=== PATIENT | female | born 1950 | race Caucasian/White ===

== ENCOUNTER 2017-01-11 11:47 | Day surgery (SDC) | payer OTHER ==
[~2017-01-11] VITALS: Ht 160 cm; Wt 108.8 kg
[~2017-01-11 11:47] MED LIST: APRESOLINE100 MG PO; CALCIUM ACETAT667 M2 PO; CALCIUM ACETAT667 MG PO; COZAAR50 MG PO; CYMBALTA60 MG PO; DUONEB 2.5-0.5 M3 ML AEROSOL; ERGOCALCIF50000 UNIT PO; FOLIC ACID1 MG PO; IMDUR120 MG PO; LEVEMIR100 UNIT/2 SC; LEVO-T75 MCG PO; LIPITOR40 MG PO; LO-DOSE ASPIRIN81 M2 PO; NABI650T PO; NEPHRO-VITE,1 TABLET PO; NORVASC2.5 MG PO; NOVOLIN N100 UNITS/ SC; TENORMIN50 MG PO; VITAMIN D-32000 UNI2 PO
[2017-01-11 12:24] LABS: POINT-OF-CARE METER ID UU14174212
[2017-01-11 12:29] LABS: HEMATOCRIT 32.3 % (36.0-46.0); MCH 30.3 PG (29.0-34.0); MCHC 31.3 G/DL (30.0-36.0); MEAN PLAT.VOLUME 10.3 uM^3 (9.5-12.4); PLATELET COUNT 236 K/uL (156-360); RBC DIS.WIDTH-SD 55.8 % (39-53); RED BLOOD COUNT 3.33 M/uL (3.80-5.20); WHITE BLOOD COUNT 8.7 K/uL (4.1-10.2)
[2017-01-11 12:34] VITALS: BP 135/69
[2017-01-11 12:46] LABS: CHLORIDE 96 mEq/L (99-109); POTASSIUM 3.4 mEq/L (3.7-5.4); SODIUM 140 mEq/L (136-147)
[2017-01-11 12:48] LABS: GLUCOSE 88 mg/dL (70-99)
[2017-01-11 12:50] LABS: ANION GAP 13 MEQ/L (2-14)
[2017-01-11 12:52] LABS: GFR ESTIMATE (CALCULATED) 12 mL/min/
[2017-01-11 12:53] LABS: UREA NITROGEN (BUN) 40 mg/dL (9-23)
[2017-01-11 17:43] LABS: POINT-OF-CARE METER ID UU13113675
[2017-01-11] MEDS ORDERED: NORCO 5/3251 TABLET PO (17:53)
[2017-01-11 18:45] VITALS: BP 127/58
[2017-01-11 20:42] VITALS: BP 107/53
== END 2017-01-11 21:08 | disposition home or self-care (01) ==
LOC: SDC 11:47
PROVIDERS: Surgery
PROC: 031 Upper Arteries, Bypass (ICD-10-PCS; principal; 2017-01-11)
DX: I12.0 Hypertensive chronic kidney disease with stage 5 chronic kidney disease or end stage renal disease (principal); E11.22 Type 2 diabetes mellitus with diabetic chronic kidney disease; N18.6 End stage renal disease; Z99.2 Dependence on renal dialysis; Z79.4 Long term (current) use of insulin; E78.5 Hyperlipidemia, unspecified; E03.9 Hypothyroidism, unspecified; F41.1 Generalized anxiety disorder; F32.9 Major depressive disorder, single episode, unspecified; G47.30 Sleep apnea, unspecified; Z79.82 Long term (current) use of aspirin; Z91.09 Other allergy status, other than to drugs and biological substances; Z82.49 Family history of ischemic heart disease and other diseases of the circulatory system; Z83.3 Family history of diabetes mellitus; Z83.2 Family history of diseases of the blood and blood-forming organs and certain disorders involving the immune mechanism
CPT/HCPCS: 80048; 82948; 85027; 93005; C1768; J0131; J0690; J1644; J2405

== ENCOUNTER 2017-02-13 14:27 | Day surgery (SDC) | payer OTHER ==
[~2017-02-13] VITALS: Ht 160 cm; Wt 106.9 kg
[~2017-02-13 14:27] MED LIST changes: +NORCO 5/3251 TABLET PO
[2017-02-13] MEDS ORDERED: ALPRAZOLAM0.25 M2 PO (15:02)
[2017-02-13] MEDS ORDERED: CYMBALTA60 MG PO (15:08)
[2017-02-13] MEDS ORDERED: LASIX40 MG PO (15:09)
[2017-02-13 15:11] LABS: ANION GAP 12 MEQ/L (2-14); CHLORIDE 95 MEQ/L (99-109); POTASSIUM 3.8 MEQ/L (3.7-5.4); SAMPLE HEMOLYSIS CHECK 0; SAMPLE ICTERIC CHECK 0; SAMPLE LIPEMIA CHECK 0; SODIUM 137 MEQ/L (136-147)
[2017-02-13 15:17] LABS: GFR ESTIMATE (CALCULATED) 10 mL/min/; GLUCOSE 113 mg/dL (70-99); UREA NITROGEN (BUN) 43 mg/dL (9-23)
[2017-02-13 15:42] LABS: EOSINOPHIL (%) 2.1 % (0-5); EOSINOPHIL COUNT 0.1 K/uL (0-0.3); HEMATOCRIT 33.2 % (36.0-46.0); IMMATURE GRANULOCYTE (%) 0.3 % (0.0-0.7); INSTRUMENT ABS NEUTROPHIL CT 4.3 K/uL; LYMPHOCYTE COUNT 0.9 K/uL (1.0-2.8); MCH 31.5 PG (29.0-34.0); MCHC 30.4 G/DL (30.0-36.0); MCV 103.4 FL (83-99); MEAN PLAT.VOLUME 10.2 uM^3 (9.5-12.4); MONOCYTE (%) 7.9 % (3-12); MONOCYTE COUNT 0.5 K/uL (0-0.8); NEUTROPHIL (%) 73.6 % (45-76); NEUTROPHIL COUNT 4.3 K/uL (1.8-6.4); PLATELET COUNT 291 K/uL (156-360); RBC DIS.WIDTH-CV 16.6 % (11.8-14.6); RBC DIS.WIDTH-SD 63.3 % (39-53); RED BLOOD COUNT 3.21 M/uL (3.80-5.20); WHITE BLOOD COUNT 5.8 K/uL (4.1-10.2)
[2017-02-13 17:01] LABS: METH RESISTANT S AUREUS PCR NEGATIVE (NEGATIVE)
[2017-02-13 17:11] LABS: PROBE CHECK PASS; SPECIMEN PROCESSING CONTROL PASS
[2017-02-13 19:25] LABS: POINT-OF-CARE METER ID UU13113675; POINT-OF-CARE USER ID ADMKMM76
[2017-02-13 19:54] VITALS: BP 138/67
== END 2017-02-13 20:26 | disposition home or self-care (01) ==
LOC: SDC 14:27
PROVIDERS: Surgery
DX: T82.868A Thrombosis due to vascular prosthetic devices, implants and grafts, initial encounter (principal); T82.858A Stenosis of other vascular prosthetic devices, implants and grafts, initial encounter; I12.0 Hypertensive chronic kidney disease with stage 5 chronic kidney disease or end stage renal disease; E11.22 Type 2 diabetes mellitus with diabetic chronic kidney disease; N18.6 End stage renal disease; Z99.2 Dependence on renal dialysis; E03.9 Hypothyroidism, unspecified; F41.1 Generalized anxiety disorder; G47.30 Sleep apnea, unspecified; Z79.82 Long term (current) use of aspirin; Z79.4 Long term (current) use of insulin; Z82.49 Family history of ischemic heart disease and other diseases of the circulatory system; Z83.3 Family history of diabetes mellitus; Z91.09 Other allergy status, other than to drugs and biological substances; Y83.2 Surgical operation with anastomosis, bypass or graft as the cause of abnormal reaction of the patient, or of later complication, without mention of misadventure at the time of the procedure
CPT/HCPCS: 80048; 82948; 85025; 87641; C1725; C1757; C1769; C1894; C2628; J0690; J1644; J2250; J2405; J3010

== ENCOUNTER 2017-02-15 14:43 | Day surgery (SDC) | payer OTHER ==
[~2017-02-15] VITALS: Ht 160 cm; Wt 106.9 kg
[~2017-02-15 14:43] MED LIST changes: +ALPRAZOLAM0.25 M2 PO; +LASIX40 MG PO
[2017-02-15 15:15] LABS: HEMATOCRIT 32.9 % (36.0-46.0); MCH 32.6 PG (29.0-34.0); MCHC 31.3 G/DL (30.0-36.0); MCV 104.1 FL (83-99); MEAN PLAT.VOLUME 9.5 uM^3 (9.5-12.4); PLATELET COUNT 264 K/uL (156-360); RBC DIS.WIDTH-CV 16.3 % (11.8-14.6); RBC DIS.WIDTH-SD 62.7 % (39-53); RED BLOOD COUNT 3.16 M/uL (3.80-5.20); WHITE BLOOD COUNT 5.2 K/uL (4.1-10.2)
[2017-02-15 15:25] VITALS: BP 176/90
[2017-02-15 15:35] LABS: ANION GAP 10 MEQ/L (2-14); CHLORIDE 96 MEQ/L (99-109); GFR ESTIMATE (CALCULATED) 12 mL/min/; GLUCOSE 88 mg/dL (70-99); POTASSIUM 3.5 MEQ/L (3.7-5.4); SAMPLE HEMOLYSIS CHECK 0; SAMPLE ICTERIC CHECK 0; SAMPLE LIPEMIA CHECK 0; SODIUM 138 MEQ/L (136-147); UREA NITROGEN (BUN) 29 mg/dL (9-23)
[2017-02-15 16:38] LABS: METH RESISTANT S AUREUS PCR NEGATIVE (NEGATIVE)
[2017-02-15 16:44] LABS: PROBE CHECK PASS; SPECIMEN PROCESSING CONTROL PASS
[2017-02-15 19:35] VITALS: BP 137/65
[2017-02-15 19:47] LABS: POINT-OF-CARE METER ID UU14174212
[2017-02-15 20:05] VITALS: BP 123/60
== END 2017-02-15 20:20 | disposition home or self-care (01) ==
LOC: SDC 14:43
PROVIDERS: Surgery
DX: T82.868A Thrombosis due to vascular prosthetic devices, implants and grafts, initial encounter (principal); I12.0 Hypertensive chronic kidney disease with stage 5 chronic kidney disease or end stage renal disease; N18.6 End stage renal disease; E11.22 Type 2 diabetes mellitus with diabetic chronic kidney disease; E78.4 Other hyperlipidemia; F41.1 Generalized anxiety disorder; E03.9 Hypothyroidism, unspecified; G47.30 Sleep apnea, unspecified; R94.31 Abnormal electrocardiogram [ECG] [EKG]; Z79.4 Long term (current) use of insulin; Z79.899 Other long term (current) drug therapy; Z83.3 Family history of diabetes mellitus; Z83.2 Family history of diseases of the blood and blood-forming organs and certain disorders involving the immune mechanism; Z82.49 Family history of ischemic heart disease and other diseases of the circulatory system
CPT/HCPCS: 80048; 82948; 85027; 87641; C1725; C1757; C1769; C1874; C1894; C2628; J0690; J1644; J2250; J3010

== ENCOUNTER 2017-02-18 14:33 | Day surgery (SDC) | payer OTHER ==
[~2017-02-18] VITALS: Ht 160 cm; Wt 112.4 kg
[2017-02-18 15:15] LABS: HEMATOCRIT 30.7 % (36.0-46.0); MCV 103.4 FL (83-99)
[2017-02-18 15:30] LABS: ANION GAP 10 MEQ/L (2-14); CHLORIDE 97 MEQ/L (99-109); POTASSIUM 3.2 MEQ/L (3.7-5.4); SAMPLE HEMOLYSIS CHECK 0; SAMPLE ICTERIC CHECK 0; SAMPLE LIPEMIA CHECK 0; SODIUM 137 MEQ/L (136-147)
[2017-02-18 15:33] VITALS: BP 134/84
[2017-02-18 15:36] LABS: GFR ESTIMATE (CALCULATED) 10 mL/min/; GLUCOSE 82 mg/dL (70-99); UREA NITROGEN (BUN) 31 mg/dL (9-23)
[2017-02-18 15:37] LABS: POINT-OF-CARE METER ID UU14174212
[2017-02-18 16:40] LABS: POINT-OF-CARE METER ID UU14174212
[2017-02-18 17:42] LABS: POINT-OF-CARE METER ID UU14174212
[2017-02-18 20:18] LABS: POINT-OF-CARE METER ID UU13113675
[2017-02-18 21:26] VITALS: BP 120/72
[2017-02-18 23:32] VITALS: BP 132/61
[2017-02-19 03:38] VITALS: BP 108/55; BP 97/51
[2017-02-19] MEDS ORDERED: NOVOLOG PE100 UNITS/ SC (05:01)
[2017-02-19 05:24] VITALS: BP 102/64
[2017-02-19 06:05] VITALS: BP 86/48
[2017-02-19 07:15] LABS: HEMATOCRIT 26.1 % (36.0-46.0); MCH 31.7 PG (29.0-34.0); MCHC 30.7 G/DL (30.0-36.0); MCV 103.6 FL (83-99); MEAN PLAT.VOLUME 10.1 uM^3 (9.5-12.4); PLATELET COUNT 231 K/uL (156-360); RBC DIS.WIDTH-CV 16.7 % (11.8-14.6); RBC DIS.WIDTH-SD 62.4 % (39-53); WHITE BLOOD COUNT 6.2 K/uL (4.1-10.2)
[2017-02-19 07:30] LABS: RED BLOOD COUNT 2.52 M/uL (3.80-5.20)
[2017-02-19 07:46] LABS: ANION GAP 11 MEQ/L (2-14); CHLORIDE 98 MEQ/L (99-109); GFR ESTIMATE (CALCULATED) 8 mL/min/; POTASSIUM 3.5 MEQ/L (3.7-5.4); SAMPLE HEMOLYSIS CHECK 0; SAMPLE ICTERIC CHECK 0; SAMPLE LIPEMIA CHECK 0; SODIUM 138 MEQ/L (136-147); UREA NITROGEN (BUN) 34 mg/dL (9-23)
[2017-02-19 07:49] LABS: GLUCOSE 142 mg/dL (70-99)
[2017-02-19 08:00] VITALS: BP 124/56
[2017-02-19] MEDS ORDERED: METOPROLOL SUCC25 MG PO (15:08)
[2017-02-19] MEDS ORDERED: IMDUR60 MG PO (15:08)
[2017-02-19] MEDS ORDERED: ELIQUIS5 MG PO (15:08)
== END 2017-02-19 17:24 | disposition home or self-care (01) ==
LOC: SDC 14:33 → 2EASTP 20:15 → 2SOUTH 20:15 → 2EASTP 21:26
PROVIDERS: Surgery
DX: T82.868A Thrombosis due to vascular prosthetic devices, implants and grafts, initial encounter (principal); T82.858A Stenosis of other vascular prosthetic devices, implants and grafts, initial encounter; Y83.2 Surgical operation with anastomosis, bypass or graft as the cause of abnormal reaction of the patient, or of later complication, without mention of misadventure at the time of the procedure; I13.2 Hypertensive heart and chronic kidney disease with heart failure and with stage 5 chronic kidney disease, or end stage renal disease; E11.22 Type 2 diabetes mellitus with diabetic chronic kidney disease; N18.6 End stage renal disease; I50.9 Heart failure, unspecified; Z99.2 Dependence on renal dialysis; Z79.4 Long term (current) use of insulin; E78.5 Hyperlipidemia, unspecified; E03.9 Hypothyroidism, unspecified; E66.01 Morbid (severe) obesity due to excess calories; Z68.41 Body mass index [BMI] 40.0-44.9, adult; D63.1 Anemia in chronic kidney disease; N25.81 Secondary hyperparathyroidism of renal origin; R60.0 Localized edema; I87.8 Other specified disorders of veins; Z79.82 Long term (current) use of aspirin; Z83.3 Family history of diabetes mellitus; Z84.1 Family history of disorders of kidney and ureter
CPT/HCPCS: 80048; 80048 91; 82948; 85014; 85018; 85027; 85730; 94660; C1725; C1757; C1769; C1894; C2628; G0378; J0690; J0881; J1270; J1644; J1815; J2175; J7040

== ENCOUNTER → 2017-03-20 | Outpatient (CLI) | payer OTHER ==
[~2017-03-20] MED LIST changes: +ELIQUIS5 MG PO; +IMDUR60 MG PO; +METOPROLOL SUCC25 MG PO; +NOVOLOG PE100 UNITS/ SC
== END | disposition home or self-care (01) ==
LOC: AMB 07:30
PROC: 0JPTXXZ Removal of Tunneled Vascular Access Device from Trunk Subcutaneous Tissue and Fascia, External Approach (ICD-10-PCS; principal; 2017-03-20)
DX: N18.6 End stage renal disease (principal); Z99.2 Dependence on renal dialysis

== ENCOUNTER 2017-07-26 05:43 | Day surgery (SDC) | payer OTHER ==
[~2017-07-26] VITALS: Ht 160 cm; Wt 705.7 kg
[~2017-07-26 05:43] MED LIST changes: +ISOSORBIDE MONO30 MG PO; -LASIX40 MG PO; +LASIX80 MG PO; +RENAL-VITE TAB0.8 MG PO; +TOPROL XL25 MG PO
[2017-07-26 06:23] LABS: POINT-OF-CARE METER ID UU14174212
[2017-07-26 06:28] LABS: HEMATOCRIT 33.4 % (36.0-46.0); MCH 32.5 PG (29.0-34.0); MCHC 31.4 G/DL (30.0-36.0); MCV 103.4 FL (83-99); MEAN PLAT.VOLUME 9.7 uM^3 (9.5-12.4); PLATELET COUNT 236 K/uL (156-360); RBC DIS.WIDTH-CV 13.9 % (11.8-14.6); RBC DIS.WIDTH-SD 53.2 % (39-53); RED BLOOD COUNT 3.23 M/uL (3.80-5.20); WHITE BLOOD COUNT 5.7 K/uL (4.1-10.2)
[2017-07-26 06:36] VITALS: BP 163/79
[2017-07-26 07:11] LABS: ANION GAP 12 MEQ/L (2-14); CHLORIDE 93 MEQ/L (99-109); GFR ESTIMATE (CALCULATED) 14 mL/min/; GLUCOSE 180 mg/dL (70-99); POTASSIUM 3.6 MEQ/L (3.7-5.4); SAMPLE HEMOLYSIS CHECK 0; SAMPLE ICTERIC CHECK 0; SAMPLE LIPEMIA CHECK 0; SODIUM 137 MEQ/L (136-147); UREA NITROGEN (BUN) 36 mg/dL (9-23)
[2017-07-26 07:26] LABS: METH RESISTANT S AUREUS PCR NEGATIVE (NEGATIVE); PROBE CHECK PASS; SPECIMEN PROCESSING CONTROL PASS
[2017-07-26 09:46] LABS: POINT-OF-CARE METER ID UU13113675; POINT-OF-CARE USER ID 515036437
[2017-07-26] MEDS ORDERED: NORCO 5/3251 TABLET PO (10:10)
[2017-07-26 11:07] VITALS: BP 122/58
[2017-07-26 12:07] VITALS: BP 111/56
[2017-07-26 13:10] VITALS: BP 103/51
== END 2017-07-26 13:10 | disposition home or self-care (01) ==
LOC: SDC 05:43
PROVIDERS: Surgery
PROC: 0WHG43Z Insertion of Infusion Device into Peritoneal Cavity, Percutaneous Endoscopic Approach (ICD-10-PCS; principal; 2017-07-26)
DX: I12.0 Hypertensive chronic kidney disease with stage 5 chronic kidney disease or end stage renal disease (principal); E11.22 Type 2 diabetes mellitus with diabetic chronic kidney disease; N18.6 End stage renal disease; Z99.2 Dependence on renal dialysis; Z79.4 Long term (current) use of insulin; E78.4 Other hyperlipidemia; E03.9 Hypothyroidism, unspecified; G47.30 Sleep apnea, unspecified; F41.1 Generalized anxiety disorder; Z79.82 Long term (current) use of aspirin; Z79.01 Long term (current) use of anticoagulants
CPT/HCPCS: 80048; 82948; 85027; 87641; C1750; J0690; J2250; J2405; J2710; J2765; J3010; S0020

== ENCOUNTER 2017-08-16 15:23 | Day surgery (SDC) | payer OTHER ==
[~2017-08-16] VITALS: Ht 160 cm; Wt 105.7 kg
[2017-08-16 15:46] VITALS: BP 160/79
[2017-08-16 16:02] LABS: EOSINOPHIL (%) 4.5 % (0-5); EOSINOPHIL COUNT 0.2 K/uL (0-0.3); HEMATOCRIT 34.3 % (36.0-46.0); IMMATURE GRANULOCYTE (%) 0.2 % (0.0-0.7); INSTRUMENT ABS NEUTROPHIL CT 3.7 K/uL; MCH 32.1 PG (29.0-34.0); MCHC 31.2 G/DL (30.0-36.0); MEAN PLAT.VOLUME 9.7 uM^3 (9.5-12.4); MONOCYTE (%) 7.5 % (3-12); MONOCYTE COUNT 0.4 K/uL (0-0.8); NEUTROPHIL (%) 68.5 % (45-76); NEUTROPHIL COUNT 3.7 K/uL (1.8-6.4); PLATELET COUNT 286 K/uL (156-360); RBC DIS.WIDTH-CV 13.8 % (11.8-14.6); RBC DIS.WIDTH-SD 52.3 % (39-53); RED BLOOD COUNT 3.33 M/uL (3.80-5.20); WHITE BLOOD COUNT 5.3 K/uL (4.1-10.2)
[2017-08-16 16:11] LABS: ANION GAP 13 MEQ/L (2-14); CHLORIDE 94 MEQ/L (99-109); POTASSIUM 3.6 MEQ/L (3.7-5.4); SAMPLE HEMOLYSIS CHECK 0; SAMPLE ICTERIC CHECK 0; SAMPLE LIPEMIA CHECK 0; SODIUM 137 MEQ/L (136-147)
[2017-08-16 16:17] LABS: GFR ESTIMATE (CALCULATED) 11 mL/min/; GLUCOSE 181 mg/dL (70-99); UREA NITROGEN (BUN) 40 mg/dL (9-23)
[2017-08-16 18:57] LABS: POINT-OF-CARE METER ID UU13113675
[2017-08-16 19:40] VITALS: BP 185/81
[2017-08-16 20:05] VITALS: BP 167/77
== END 2017-08-16 20:19 | disposition home or self-care (01) ==
LOC: SDC 15:23
PROVIDERS: Surgery
PROC: 0WWG40Z Revision of Drainage Device in Peritoneal Cavity, Percutaneous Endoscopic Approach (ICD-10-PCS; principal; 2017-08-16)
DX: T85.611A Breakdown (mechanical) of intraperitoneal dialysis catheter, initial encounter (principal); Y81.2 Prosthetic and other implants, materials and accessory general- and plastic-surgery devices associated with adverse incidents; I12.0 Hypertensive chronic kidney disease with stage 5 chronic kidney disease or end stage renal disease; E11.22 Type 2 diabetes mellitus with diabetic chronic kidney disease; N18.6 End stage renal disease; Z99.2 Dependence on renal dialysis; E78.4 Other hyperlipidemia; E03.9 Hypothyroidism, unspecified; F41.1 Generalized anxiety disorder; F32.9 Major depressive disorder, single episode, unspecified; G47.30 Sleep apnea, unspecified; Z79.82 Long term (current) use of aspirin; Z79.01 Long term (current) use of anticoagulants; Z79.4 Long term (current) use of insulin; Z82.49 Family history of ischemic heart disease and other diseases of the circulatory system; Z83.3 Family history of diabetes mellitus
CPT/HCPCS: 80048; 82948; 85025; 93005; J0690; J3010; S0020

== ENCOUNTER 2017-09-05 10:33 | Inpatient (IN) | payer OTHER ==
[~2017-09-05] VITALS: Ht 160 cm; Wt 113.0 kg
[2017-09-05 11:06] LABS: HEMATOCRIT 31.7 % (36.0-46.0); MCV 103.6 FL (83-99)
[2017-09-05 11:24] VITALS: BP 131/64
[2017-09-05 11:26] LABS: POINT-OF-CARE METER ID UU14174212
[2017-09-05 11:33] LABS: ANION GAP 11 MEQ/L (2-14); CHLORIDE 95 MEQ/L (99-109); POTASSIUM 3.9 MEQ/L (3.7-5.4); SAMPLE HEMOLYSIS CHECK 0; SAMPLE ICTERIC CHECK 0; SAMPLE LIPEMIA CHECK 0; SODIUM 137 MEQ/L (136-147)
[2017-09-05 11:38] LABS: GFR ESTIMATE (CALCULATED) 9 mL/min/; GLUCOSE 193 mg/dL (70-99); UREA NITROGEN (BUN) 54 mg/dL (9-23)
[2017-09-05 17:27] LABS: POINT-OF-CARE METER ID UU13113675
[2017-09-05 20:00] VITALS: BP 127/58
[2017-09-05 21:01] LABS: POINT-OF-CARE METER ID UU14174216
[2017-09-05 23:55] VITALS: BP 125/59
[2017-09-06 04:00] VITALS: BP 113/55
[2017-09-06 07:58] LABS: POINT-OF-CARE METER ID UU13113698
[2017-09-06 08:19] VITALS: BP 112/54
[2017-09-06 11:24] LABS: POINT-OF-CARE METER ID UU13113698
[2017-09-06 12:00] VITALS: BP 133/61
[2017-09-06 16:15] VITALS: BP 115/55
[2017-09-06 16:42] LABS: POINT-OF-CARE METER ID UU13113698
[2017-09-06 19:15] VITALS: BP 132/84
[2017-09-06 20:46] LABS: POINT-OF-CARE METER ID UU13113698
[2017-09-07] VITALS (7 sets, daily range): BP systolic 125–145; BP diastolic 63–70
[2017-09-07 06:39] LABS: ANION GAP 10 MEQ/L (2-14); CHLORIDE 96 MEQ/L (99-109); GFR ESTIMATE (CALCULATED) 7 mL/min/; GLUCOSE 162 mg/dL (70-99); POTASSIUM 3.9 MEQ/L (3.7-5.4); SAMPLE HEMOLYSIS CHECK 0; SAMPLE ICTERIC CHECK 0; SAMPLE LIPEMIA CHECK 0; SODIUM 134 MEQ/L (136-147); UREA NITROGEN (BUN) 56 mg/dL (9-23)
[2017-09-07 07:53] LABS: POINT-OF-CARE METER ID UU13113698
[2017-09-07 11:04] LABS: POINT-OF-CARE METER ID UU13113698
[2017-09-07 17:01] LABS: POINT-OF-CARE METER ID UU13113698
[2017-09-07 22:12] LABS: POINT-OF-CARE METER ID UU13113698
[2017-09-08 04:40] VITALS: BP 110/58
[2017-09-08 08:10] LABS: ANION GAP 11 MEQ/L (2-14); CHLORIDE 97 MEQ/L (99-109); GFR ESTIMATE (CALCULATED) 8 mL/min/; GLUCOSE 134 mg/dL (70-99); POTASSIUM 3.8 MEQ/L (3.7-5.4); SAMPLE HEMOLYSIS CHECK 0; SAMPLE ICTERIC CHECK 0; SAMPLE LIPEMIA CHECK 0; SODIUM 135 MEQ/L (136-147); UREA NITROGEN (BUN) 55 mg/dL (9-23)
[2017-09-08 08:14] LABS: POINT-OF-CARE METER ID UU14314088; POINT-OF-CARE USER ID ENVKC36
[2017-09-08 09:00] VITALS: BP 125/62
[2017-09-08 11:52] LABS: POINT-OF-CARE METER ID UU14314088; POINT-OF-CARE USER ID ENVKC36
[2017-09-08 12:00] VITALS: BP 118/58
== END 2017-09-08 15:45 | disposition home or self-care (01) | DRG 919 ==
LOC: SDC 10:33 → ENRESERV 17:06 → 4EAST 17:07 → 2SOUTH 17:07 → CANRESERV 17:49 → ENRESERV 17:49 → 4EAST 20:36
PROVIDERS: Internal Medicine Nephrology; Surgery
PROC: 0JWT33Z Revision of Infusion Device in Trunk Subcutaneous Tissue and Fascia, Percutaneous Approach (ICD-10-PCS; principal; 2017-09-05)
PROC: 3E1M39Z Irrigation of Peritoneal Cavity using Dialysate, Percutaneous Approach (ICD-10-PCS; 2017-09-06)
DX: T85.611A Breakdown (mechanical) of intraperitoneal dialysis catheter, initial encounter (principal); N18.6 End stage renal disease; I13.2 Hypertensive heart and chronic kidney disease with heart failure and with stage 5 chronic kidney disease, or end stage renal disease; N25.81 Secondary hyperparathyroidism of renal origin; Z68.41 Body mass index [BMI] 40.0-44.9, adult; F33.9 Major depressive disorder, recurrent, unspecified; Y81.2 Prosthetic and other implants, materials and accessory general- and plastic-surgery devices associated with adverse incidents; D63.1 Anemia in chronic kidney disease; E03.9 Hypothyroidism, unspecified; E11.22 Type 2 diabetes mellitus with diabetic chronic kidney disease; F41.1 Generalized anxiety disorder; G47.30 Sleep apnea, unspecified; E78.00 Pure hypercholesterolemia, unspecified; I50.9 Heart failure, unspecified; E66.9 Obesity, unspecified; Z90.49 Acquired absence of other specified parts of digestive tract; Z79.01 Long term (current) use of anticoagulants; Z99.89 Dependence on other enabling machines and devices; Z99.2 Dependence on renal dialysis; Z79.4 Long term (current) use of insulin; Z82.49 Family history of ischemic heart disease and other diseases of the circulatory system; Z83.3 Family history of diabetes mellitus
CPT/HCPCS: 80048; 80069; 82948; 85014; 85018; 94799; C1750; G0378; J0330; J0690; J1644; J1815; J2710; J3010; J7040; S0020

== ENCOUNTER 2017-12-27 05:42 | Day surgery (SDC) | payer OTHER ==
[~2017-12-27] VITALS: Ht 160 cm; Wt 114.2 kg
[2017-12-27 06:08] VITALS: BP 163/72
[2017-12-27 06:34] LABS: HEMATOCRIT 35.2 % (36.0-46.0); HEMOGLOBIN 10.9 G/DL (11.9-15.5); MCH 31.3 PG (29.0-34.0); MCV 101.1 FL (83-99); PLATELET COUNT 260 K/uL (156-360); RBC DIS.WIDTH-CV 14.9 % (11.8-14.6); RBC DIS.WIDTH-SD 55.8 % (39-53); RED BLOOD COUNT 3.48 M/uL (3.80-5.20); WHITE BLOOD COUNT 5.9 K/uL (4.1-10.2)
[2017-12-27 06:46] LABS: CHLORIDE 102 MEQ/L (99-109); CREATININE 5.5 MG/DL (0.6-1.3); GFR ESTIMATE (CALCULATED) 8 mL/min/; GLUCOSE 175 mg/dL (70-99); POTASSIUM 3.9 MEQ/L (3.7-5.4); SODIUM 139 MEQ/L (136-147); UREA NITROGEN (BUN) 71 mg/dL (9-23)
[2017-12-27] MEDS ORDERED: NORCO 5/3251 TABLET PO (10:07)
[2017-12-27 14:20] VITALS: BP 128/58
[2017-12-27 23:17] VITALS: BP 120/60
[2017-12-28 07:00] VITALS: BP 134/69
== END 2017-12-28 18:37 | disposition home or self-care (01) ==
LOC: SDC 05:42 → 2SOUTH 10:06 → ENRESERV 10:07 → SDC 12:09 → ENRESERV 13:28 → SDC 13:45 → 5EAST 14:25
PROVIDERS: Surgery
PROC: 0WWG40Z Revision of Drainage Device in Peritoneal Cavity, Percutaneous Endoscopic Approach (ICD-10-PCS; principal; 2017-12-27)
DX: T85.611A Breakdown (mechanical) of intraperitoneal dialysis catheter, initial encounter (principal); I12.0 Hypertensive chronic kidney disease with stage 5 chronic kidney disease or end stage renal disease; N18.6 End stage renal disease; Z99.2 Dependence on renal dialysis; E11.22 Type 2 diabetes mellitus with diabetic chronic kidney disease; E78.4 Other hyperlipidemia; E07.9 Disorder of thyroid, unspecified; F41.1 Generalized anxiety disorder; F32.9 Major depressive disorder, single episode, unspecified; G47.30 Sleep apnea, unspecified; Z79.4 Long term (current) use of insulin; Z79.01 Long term (current) use of anticoagulants; Z79.82 Long term (current) use of aspirin; Z82.49 Family history of ischemic heart disease and other diseases of the circulatory system; Z83.3 Family history of diabetes mellitus; Z83.2 Family history of diseases of the blood and blood-forming organs and certain disorders involving the immune mechanism; Z91.048 Other nonmedicinal substance allergy status; Y83.1 Surgical operation with implant of artificial internal device as the cause of abnormal reaction of the patient, or of later complication, without mention of misadventure at the time of the procedure
CPT/HCPCS: 80048; 82948; 85027; 94799; G0378; J0690; J1170; J1815; J2250; J2405; J2710; J2765; S0020

== ENCOUNTER 2018-05-02 10:31 | Day surgery (SDC) | payer OTHER, BC ==
[~2018-05-02] VITALS: Ht 160 cm; Wt 103.4 kg
[~2018-05-02 10:31] MED LIST changes: +CYMBALTA20 MG PO; +TYLENOL325 M2 PO
[2018-05-02 11:06] LABS: HEMOGLOBIN 11.3 G/DL (11.9-15.5); MCH 32.8 PG (29.0-34.0); MCHC 33.2 G/DL (30.0-36.0); MCV 98.6 FL (83-99); PLATELET COUNT 256 K/uL (156-360); RBC DIS.WIDTH-CV 13.9 % (11.8-14.6); RBC DIS.WIDTH-SD 49.7 % (39-53); RED BLOOD COUNT 3.45 M/uL (3.80-5.20); WHITE BLOOD COUNT 6.2 K/uL (4.1-10.2)
[2018-05-02 11:30] VITALS: BP 187/81
[2018-05-02 11:41] LABS: CHLORIDE 88 MEQ/L (99-109); CREATININE 3.2 MG/DL (0.6-1.3); GFR ESTIMATE (CALCULATED) 15 mL/min/; SODIUM 132 MEQ/L (136-147); UREA NITROGEN (BUN) 25 mg/dL (9-23)
[2018-05-02 11:43] LABS: GLUCOSE 528 mg/dL (70-99)
[2018-05-02 18:16] VITALS: BP 180/89
[2018-05-02 20:04] VITALS: BP 136/72
[2018-05-02 23:58] VITALS: BP 141/66
[2018-05-03 08:04] VITALS: BP 139/73
== END 2018-05-03 12:55 | disposition home or self-care (01) ==
LOC: SDC 10:31 → 2SOUTH 17:12 → ENRESERV 17:14 → 2EAST 18:12
PROVIDERS: Surgery
PROC: 0WPG03Z Removal of Infusion Device from Peritoneal Cavity, Open Approach (ICD-10-PCS; principal; 2018-05-02)
DX: T85.611A Breakdown (mechanical) of intraperitoneal dialysis catheter, initial encounter (principal); Y81.2 Prosthetic and other implants, materials and accessory general- and plastic-surgery devices associated with adverse incidents; I12.0 Hypertensive chronic kidney disease with stage 5 chronic kidney disease or end stage renal disease; E11.22 Type 2 diabetes mellitus with diabetic chronic kidney disease; E11.65 Type 2 diabetes mellitus with hyperglycemia; N18.6 End stage renal disease; Z99.2 Dependence on renal dialysis; E78.5 Hyperlipidemia, unspecified; E03.9 Hypothyroidism, unspecified; F41.1 Generalized anxiety disorder; F32.9 Major depressive disorder, single episode, unspecified; G47.30 Sleep apnea, unspecified; Z91.048 Other nonmedicinal substance allergy status; Z79.4 Long term (current) use of insulin; Z82.49 Family history of ischemic heart disease and other diseases of the circulatory system; Z83.3 Family history of diabetes mellitus; Z79.82 Long term (current) use of aspirin; Z79.01 Long term (current) use of anticoagulants; Z90.49 Acquired absence of other specified parts of digestive tract
CPT/HCPCS: 80048; 82948; 85027; 87641; 93005; G0378; J0690; J1815; J2250; J3010; J7040; S0020